=== PATIENT | female | born 1945 | race Caucasian/White ===

== ENCOUNTER 2016-10-29 00:17 | Inpatient (IN) | payer MEDICAID ==
[~2016-10-29] VITALS: Ht 152.4 cm; Wt 78.0 kg
[~2016-10-29 00:17] MED LIST: ATA10 PO; BG MC; CLINDAMYCIN HC300 MG PO; COLACE100 MG PO; DULERA1 AR2; GLU500 PO; LAC PO; LEVAQUIN750 MG PO; MUCINEX600 MG PO; NORCO1 TA2 PO; PROVENTIL0.09 MG/A1; QVAR0.04 MG/Ac; ZES10 PO
[2016-10-29 00:53] LABS: BASOPHIL % 0.7 % (0-2); PLATELET COUNT 136 x10^3mcL (130-400)
[2016-10-29 00:56] LABS: RED CELL DISTRIBUTION WIDTH 16.2 % (11.5-14.5)
--- NOTE | 2016-10-29 01:00 | NUR ---
PT ARRIVED TO ED TODAY C/O COUGH AND FEVER X 4 DAYS. PT HAS PRODUCTIVE COUGH WITH GREEN PHLEGM NOTEED. VITAL SIGNS STABLE AT THIS TIME. NO S/SX OF DISTRESS NOTED.
[2016-10-29 01:05] LABS: CALCIUM 8.1 mg/dL (8.5-10.1); CARBON DIOXIDE 23.3 mmol/L (21-32); CHLORIDE SERUM 105 mmol/L (98-107); GLUCOSE SERUM 258 mg/dL (74-106); POTASSIUM SERUM 4.4 mmol/L (3.5-5.1); SODIUM SERUM 136 mmol/L (136-145)
[2016-10-29 01:10] LABS: ALBUMIN 2.9 g/dL (3.4-5.0); ALKALINE PHOSPHATASE 166 U/L (46-116); ALT/SGPT 30 U/L (14-59); AST/SGOT 41 U/L (15-37); BILIRUBIN TOTAL 1.07 mg/dL (0.20-1.00); TOTAL PROTEIN, SERUM 7.4 g/dL (6.4-8.2)
--- NOTE | 2016-10-29 01:15 | NUR ---
PT HR INCREASED TO [address] DR[address] GOMEZ MADE AWARE. NEW ORDERS PROVIDED AT THIS TIME.
--- NOTE | 2016-10-29 03:39 | NUR ---
PT TRANSPORTED TO [facility] VIA [facility] BY STANISLAV GIORDANO. PT IN NAD
--- NOTE | 2016-10-29 03:40 | NUR ---
REC'D PT FROM ED VIA [facility] ACCOMPANIED BY NURSE AND DAUGHTER IN LAW. PT AAOX4, SPEECH CLEAR. ON TELE # 13 READING SR/ST WITH PACS. REPORTS SHARP CP 6/10 AND LOWER BACK PAIN EXACERBATED BY COUGHING. ALSO C/O PAIN BLE 10/10 FROM SCIATICA. NO SIGNS OF DISTRESS NOTED. DENIES SOB OR DYSPNEA. SPO2 98% ON RA. DENIES N/V, DIZZINESS, OR GREY. UA COLLECTED, RT IN TO COLLECT ABGS. AMBULATORY. USES CANE SOMETIMES AT HOME. NOTED PSORIASIS TO BACK AND LOWER ABD. NO OPEN LESIONS. ORIENTED TO DEVICES AND SURROUNDINGS. CALL LIGHT WITHIN REACH, BED AT LOWEST POSITION. WILL CONTINUE TO MONITOR.
[2016-10-29 03:43] VITALS: BP 138/53
[2016-10-29 03:46] VITALS: BP 138/53
[2016-10-29] MEDS ORDERED: LANTI SC (03:51)
[2016-10-29 04:16] LABS: FREE T4 0.96 ng/dL (0.76-1.46); FREE THYROXINE INDEX 2.2 ug/dL (1.4-4.5); T4(THYROXINE) 6.5 ug/dL (4.7-13.3)
[2016-10-29 04:17] LABS: T3 TOTAL 0.79 ng/mL
[2016-10-29] MEDS ORDERED: HUMALOG100 U/ML SC (04:19)
[2016-10-29 04:28] LABS: CHOLESTEROL/HDL RATIO 2.1
--- NOTE | 2016-10-29 04:48 | NUR ---
Z GUARD APPLIED TO PSORIASIS ON BACK/LOWER ABD PER ORDER
--- NOTE | 2016-10-29 04:50 | NUR ---
PT C/O CP 6/10, LOWER BACK PAIN, AND BLE PAIN 10/10. MORPHINE GIVEN PER ORDER. WILL MONITOR FOR RELIEF.
[2016-10-29 04:51] LABS: UA SPECIFIC GRAVITY 1.015 (1.005-1.035); microscopic required? YES; urine erythrocyte TRACE (NEGATIVE)
[2016-10-29 04:58] LABS: AMPHETAMINE QUAL UR NONE DETECTED (NEG <=1000)
--- NOTE | 2016-10-29 06:33 | NUR ---
DUE MEDS GIVEN. BS 311, 12 UNITS INSULIN GIVEN. DENIES PAIN AT THIS TIME. NO RESP DISTRESS OR SOB. BREATHING EVEN/UNLABORED. CALL LIGHT WITHIN REACH, BED AT LOWEST POSITION. WILL ENDORSE TO DAY SHIFT NURSE.
--- NOTE | 2016-10-29 07:30 | NUR ---
RECEIVED PT FROM NOC SHIFT. AAOX4 SITTING UP IN BED EATING BREAKFAST WITH NO C/O PAIN AT THIS TIME. IVF TO RFA CDI. BREATH SOUNDS NOTED WITH WHEEZING BULMARO. ABDOMEN SOFT WITH ACTIVE BOWEL SOUNDS. PULSES MODERATE WITH TRACE EDEMA NOTED TO BLE. CALL LIGHT WITHIN REACH.
[2016-10-29 10:03] VITALS: BP 126/63
--- NOTE | 2016-10-29 10:05 | NUR ---
PT SITTING UP ON EDGE OF BED. NO SIGNS OF PAIN OR DISCOMFORT. CALL LIGHT WITHIN REACH.
--- NOTE | 2016-10-29 12:55 | NUR ---
PT RESTING IN BED WITH NO C/O PAIN AT THIS TIME. CALL LIGHT WITHIN REACH.
[2016-10-29 14:40] VITALS: BP 138/70
--- NOTE | 2016-10-29 15:30 | NUR ---
PT SITTING UP IN BED WATCHING TV WITH NO C/O PAIN AT THIS TIME. CALL LIGHT WITHIN REACH.
[2016-10-29 17:30] VITALS: BP 104/62
--- NOTE | 2016-10-29 18:05 | NUR ---
PT SITTING ON EDGE OF BED EATING DINNER. AAOX4 WITH NO C/O PAIN AT THIS TIME. CALL LIGHT WITHIN REACH. WILL ENDORSE TO NOC SHIFT.
--- NOTE | 2016-10-29 18:55 | NUR ---
DR MURCIA MADE AWARE OF BLOOD SUGAR OF 524/236 WITH A RECHECK OF 216 AFTER A HOUR AFTER INSULINS WERE GIVEN.
--- NOTE | 2016-10-29 19:35 | NUR ---
RECEIVED PATIENT SLEEPING BUT EASILY AROUSABLE WITH NO SIGN OF ACUTE DISTRESS NOTED. TELE#13, SR WITH PAC ON MONITOR. SCD TO BLE IN PLACE. WHEEZING NOTED SATTING AT 98% RA, SOB ON EXERTION NOTED. KPAD TO BACK IN PLACE. IV TO RFA INTACT AND INFUSING WELL. WILL CONTINUE TO MONITOR.
[2016-10-29 22:02] VITALS: BP 123/53
--- NOTE | 2016-10-30 00:25 | NUR ---
SLEEPING THIS TIME BREATHING EASY AND NONLABOR. WILL CONTINUE TO MONITOR.
--- NOTE | 2016-10-30 05:10 | NUR ---
SLEPT FAIRLY DENIES PAINA ND DISOCMFORT THE ENTIRE SHIFT. ALL NEEDS ATTENDED.
[2016-10-30 05:55] VITALS: BP 114/61
[2016-10-30 07:05] LABS: BASOPHIL % 0.1 % (0-2)
[2016-10-30 07:14] LABS: PLATELET COUNT 128 x10^3mcL (130-400); RED CELL DISTRIBUTION WIDTH 16.7 % (11.5-14.5)
--- NOTE | 2016-10-30 07:42 | NUR ---
ALERT AND ORIENTED. BREATHING FREELY ON RA. DENIES ANY PAIN AT THIS TIME. NO RESP DISTRESS. NS INFUSING 150 CC HOUR. TELE # 31 NSR. INDEPENDENT W ADL'S. GIBRALTARIAN SPEAKING. UNDERSTANDS SOME SYRIAC. CALL LIGHT WITHIN REACH.
[2016-10-30 07:44] LABS: ALKALINE PHOSPHATASE 139 U/L (46-116); ALT/SGPT 29 U/L (14-59); AST/SGOT 28 U/L (15-37); BILIRUBIN TOTAL 0.7 mg/dL (0.20-1.00); CALCIUM 8.3 mg/dL (8.5-10.1); CARBON DIOXIDE 19.5 mmol/L (21-32); CHLORIDE SERUM 109 mmol/L (98-107); CREATININE SERUM 1.2 mg/dL (0.6-1.0); GLUCOSE SERUM 169 mg/dL (74-106); POTASSIUM SERUM 4.6 mmol/L (3.5-5.1); SODIUM SERUM 141 mmol/L (136-145); TOTAL PROTEIN, SERUM 6.9 g/dL (6.4-8.2)
[2016-10-30 07:48] LABS: ALBUMIN 2.6 g/dL (3.4-5.0)
[2016-10-30 10:10] VITALS: BP 121/56
[2016-10-30 13:13] VITALS: BP 107/53
--- NOTE | 2016-10-30 15:56 | NUR ---
Initial Nutrition Assessment Dx: Possible Acute Respiratory Failure 2/2 Acute Asthma Exacerbation PMHx: Asthma, DM, HTN, Liver Cirrhosis, Psoriasis, Vertigo, Medical Non-compliance PSHx: Appendectomy, Hernia Repair (left inguinal), right cataract laser eye surgery Labs: BG 169H, BUN 39H, Cr 1.2H, Alb 2.6L, ALP 139H, AC 7.9H, WBC 11.9H, H/H 9.2/29L Meds: humulin R, NS, theragran, colace, humalog, miralax, D50 Current Diet Order: CCHO 60gm (10/30) PO Intakes: none recorded (10/30) Ht: 152.4cm,60". Wt: 172lbs, 78kg. BMI: 33.6 kg/m2 (Obese Class I) IBW:100 lb, 45.4 kg. %IBW: 172%. UBW: 170lbs x 5 months Age: 71 Y/O F Food Allergies: NKFA Skin:intact . Juan:20 Edema: noted to BLE GI: abd soft and round, bowel sounds active. 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 The RD spoke to RN, reports the pt is able to tolerate 8 pills w/ water today, did not see any active S/S of chewing/swallowing issues. Problem with: N: None. V: None. D: none. C: Yes. Problem with: Chewing: None. Swallowing: Yes as per pt, is unable to chew and swallow meats or hard textures x 1 yr. Current Appetite: poor w/ lack of appetite Recent Weight Change: 2lbs . % Weight Change: 1.1 Vitamin/Supplement Use: none Diet at Home: pt is very picky, needs encouragment to eat meals, tries to consume 2 small meals per day, pt cooks at home Physical Activity: none Education: none Estimated Nutritional Needs Based on CBW 172 lb, 78kg Energy: 4989-5195 kcal/day (20-25 kcal/kg for Acute Respiratory Failure) Protein: 78-94g/day (1-1.2 g/kg for Acute Respiratory Failure) Fluid: 5758-5058 ml/day (20-25 ml/kg for Acute Respiratory Failure) or per MD Nutrition Diagnosis 1. Inadequate protein/energy intake related to decreased appetite + poss difficulty swallowing as evidenced by pt's self report and poos PO intake RV REPAIRER Intervention 1. Mechanical Soft Chopped CCHO 60gm w/ Boost Glucose Control (250kcals, 14g protein) daily. Max encouragment and make food preferences known. 2. Consider COMPLIANCE LEAD eval if the pt is showing S/S of aspiration or problem chewing / swallowing 3. Adjust BM regimen PRN 4. B-Complex and Folic Acid daily Monitor/Evaluate Goal: PO intakes to meet at least 50% of estimated needs Monitor: PO intakes/tolerance, labs, skin integrity, GI function, wt F/U in 2-3 days as HIGH risk (11/01-11/02)
--- NOTE | 2016-10-30 16:10 | NUR ---
1. Mechanical Soft Chopped CCHO 60gm w/ Boost Glucose Control (250kcals, 14g protein) daily. Max encouragment and make food preferences known. 2. Consider DRILLING FIELD SPECIALIST eval if the pt is showing S/S of aspiration or problem chewing / swallowing 3. Adjust BM regimen PRN 4. B-Complex and Folic Acid daily
[2016-10-30 17:26] VITALS: BP 117/53
--- NOTE | 2016-10-30 17:53 | NUR ---
ALERT AND ORIENTED. NO C/O PAIN THIS SHIFT. BREATHING FREELY ON RA. CONT. WITH CONGESTED COUGH. AMBULATED IN HALLWAY WITH FAMILY. BRP. NS INFUSING 10 CC HOUR. VSS. ALL LIGHT WITHIN REACH.
--- NOTE | 2016-10-30 19:15 | NUR ---
PATIENT RECEIVED AWAKE, ALERT, AND ORIENTED X 4. NO DISTRESS NOTED. PATIENT DENIES SOB. IV SITE TO RIGHT FOREARM, PATENT AND INTACT. IV FLUID INFUSING PER DOCTOR'S ORDER. BED IN LOWEST POSITION. CALL LIGHT WITHIN REACH. WILL CONTINUE TO MONITOR.
[2016-10-30 22:26] VITALS: BP 120/57
--- NOTE | 2016-10-31 05:27 | NUR ---
PATIENT RESTED THROUGHOUT THE NIGHT. NO DISTRESS NOTED. NO C/O PAIN/DISCOMFORT. ALL NEEDS MET. SAFETY AND COMFORT MEASURES MAINTAINED. BED IN LOWEST POSITION. CALL LIGHT WITHIN REACH. WILL CONTINUE TO MONITOR AND ENDORSE TO NEXT SHIFT NURSE.
--- NOTE | 2016-10-31 06:25 | NUR ---
PATIENT BLOOD SUGAR=60. JUICE AND CRACKERS GIVEN. PATIENT ASYMPTOMATIC SITTING UP IN BED.
[2016-10-31 06:30] VITALS: BP 114/61
[2016-10-31 06:34] LABS: BASOPHIL % 0.2 % (0-2); PLATELET COUNT 159 x10^3mcL (130-400)
[2016-10-31 06:48] LABS: CALCIUM 8.2 mg/dL (8.5-10.1); CARBON DIOXIDE 22.5 mmol/L (21-32); CHLORIDE SERUM 111 mmol/L (98-107); CREATININE SERUM 1.1 mg/dL (0.6-1.0); MAGNESIUM 1.9 mg/dL (1.8-2.4); POTASSIUM SERUM 4.8 mmol/L (3.5-5.1); SODIUM SERUM 143 mmol/L (136-145)
[2016-10-31 06:56] LABS: GLUCOSE SERUM 59 mg/dL (74-106)
--- NOTE | 2016-10-31 07:45 | NUR ---
PATIENT AOX4, DENIES GREY/DIZZINESS AT THIS TIME. TELE 13, DENIES CP. LUNGS WITH EXP WHEEZING NOTED, SOB UPON EXERTION, NO RESP DISTRESS NOTED AT REST AT THIS TIME. O2 SAT 95% ON RA. PERIPHERAL PULSES PALPABLE, TRACE EDEMA TO BLE'S. BOWEL SOUNDS ACTIVE, LAST BM YESTERDAY. KPAD TO BACK FOR SCIATICA. 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 DENIES PAIN AT THIS TIME. IV ACCESS TO RFA RUNNING NS INFUSING WELL SITE WNL. CALL LIGHT WITHIN REACH.
[2016-10-31 08:30] VITALS: BP 107/52
[2016-10-31 10:21] VITALS: BP 132/73
--- NOTE | 2016-10-31 11:18 | NUR ---
REHAB NOTES SWALLOW EVAL CANCELLED AT [facility]; SOCK IRONER, RN, RD AWARE.
--- NOTE | 2016-10-31 17:06 | NUR ---
DIESEL PILE HAMMER OPERATOR REPORTS TEMP 100.0 - COOLING MEASURES INITIATED. WILL CONT TO MONITOR.
[2016-10-31 17:55] VITALS: BP 117/65
--- NOTE | 2016-10-31 18:06 | NUR ---
PATIENT REFUSING COOLING MEASURES. TEMP RECHECK 100.1 TYLENOL GIVEN. WILL CONT TO MONITOR.
[2016-10-31 19:40] VITALS: BP 125/63
--- NOTE | 2016-10-31 19:40 | NUR ---
RECEIVED PT AWAKE ALERT AND VERBALLY RESPONSIVE IN SYRIAC.DENIES SOB/DIFFICULTY BREATHING.NO COUGHING/CONGESTION NOTED.TOLERATING ROOMAIR AT THIS TIME.O2 SAT @ 93%.LATEST TEMP CHECKED @ 100.2F.COOLING MEASURES IN PLACED.WILL CONTINUE TO MONITOR.
--- NOTE | 2016-10-31 21:04 | NUR ---
LATEST TEMP CHECKED @ 98.7F.WILL CONTINUE TO MONITOR.
--- NOTE | 2016-11-01 04:58 | NUR ---
PT SLEPT WELL.AFEBRILE.DENIES ANY PAIN AT THIS TIME.ALL NEEDS ATTENDED.WILL CONTINUE TO MONITOR.
--- NOTE | 2016-11-01 05:07 | NUR ---
BS CHECKED @ 68 MG/DL.REPEATED @ 64 MG/DL.PT VERBALLY RESPONSIVE.ASYMPTOMATIC.ORANGE JUICE GIVEN.SNACKS ALSO GIVEN AT THIS TIME.WILL CONTINUE TO MONITOR.
[2016-11-01 05:48] VITALS: BP 124/67
--- NOTE | 2016-11-01 06:16 | NUR ---
LATEST TEMP @ 98.8f.BS RECHECKED @ 135 MG/DL.WILL ENDORSE TO AM NURSE.
[2016-11-01 06:18] LABS: BASOPHIL % 0.4 % (0-2); PLATELET COUNT 147 x10^3mcL (130-400)
[2016-11-01 06:25] LABS: CALCIUM 8.2 mg/dL (8.5-10.1); CARBON DIOXIDE 25.9 mmol/L (21-32); CHLORIDE SERUM 108 mmol/L (98-107); CREATININE SERUM 0.9 mg/dL (0.6-1.0); GLUCOSE SERUM 63 mg/dL (74-106); MAGNESIUM 1.8 mg/dL (1.8-2.4); PHOSPHOROUS 3.5 mg/dL (2.5-4.9); POTASSIUM SERUM 4.2 mmol/L (3.5-5.1); SODIUM SERUM 140 mmol/L (136-145)
[2016-11-01 06:30] LABS: RED CELL DISTRIBUTION WIDTH 16.7 % (11.5-14.5)
--- NOTE | 2016-11-01 07:50 | NUR ---
RECEIVED THE PATIENT AWAKE AND ORIENTED TO PERSON, PLACE AND TIME. DENIED SHORTNESS OF BREATH, NAUSEA/VOMITING OR PAIN AT THIS TIME. IV H/L TO RFA PATENT. CALL LIGHT WITHIN REACH. SIDE RAILS UP X3. BED WAS AT LOWEST POSITION.
--- NOTE | 2016-11-01 08:10 | NUR ---
DR. FORD AND THE TEAM WERE MAKING ROUND TO SEE THE PATIENT. THE CARE PLAN WAS EXPLAINED TO THE PATIENT VIA OLDER WORKER SPECIALIST, ONE OF RN. THE PATIENT VERBALIZED AGREEMENT WITH THE PLAN.
[2016-11-01 10:33] VITALS: BP 121/55
[2016-11-01] MEDS ORDERED: ALBUTEROL1.25 MG/3 NEB (13:46)
[2016-11-01] MEDS ORDERED: LEVAQUIN750 MG PO (14:06)
[2016-11-01] MEDS ORDERED: LAC PO (14:07)
[2016-11-01 15:19] VITALS: BP 121/55
--- NOTE | 2016-11-01 15:40 | NUR ---
DISCHARGE TEACHING PROVIDED AT THIS TIME. RT AT BEDSIDE PROVIDING BREATHING TREATMENT (SEE EMAR). PATIENT AWAKE, ALERT, SITTING UP AT BEDSIDE, NO SIGNS OF DISTRESS NOTED. DIABETIC EDUCATION PROVIDED AT THIS TIME. VERBALIZED UNDERSTANDING, STATES SHE HAS A GLUCOMETER WITH SUPPLIES AT HOME. PATIENT TO FOLLOW UP AT CLINIC TOMORROW, ALL SAFETY MEASURES IN PLACE, GIULIANA PEREZ MADE AWARE.
--- NOTE | 2016-11-01 16:09 | NUR ---
H/L WAS REMOVED WITH CATH INTACT. ID BANDS WERE REMOVED. PHOTOGRAPHS OF PSORIASIS AT BLE, ABD AND BACK WERE TAKEN EARLIER. THE PATIENT IS WAITING FOR A RIDE.
--- NOTE | 2016-11-01 17:05 | NUR ---
WITNESSING DR. CONNELL-RESIDENT CALLING THE SON, ABRAN STANLEY TELLING HIM THAT THE PATIENT NEEDS NEBULIZER FOR BREATHING TREATMENT BUT THE PATIENT'S INSURANCE DOES NOT COVER THE DEVICE. THE PATIENT WILL FOLLOW UP WITH [facility] TOMORROW AND PURCHASE ONE AFTER THAT FOR HER BREATHING TREATMENT. ABRAN AGREED WITH THE PLAN.
--- NOTE | 2016-11-01 17:57 | NUR ---
THE PATIENT WAS TAKEN TO THE LOBBY VIA WHEELCHAIR IN STABLE CONDITION. REMINDED THE PATIENT'S SON TO ASK FOR NEBULIZER AT [facility] TOMORROW AT THE APPOINTMENT SO THAT THE PATIENT WILL HAVE THE BREATHING TREATMENT. HE PROMISED TO DO THAT. ALL BELONGINGS WERE SENT HOME WITH THE PATIENT UPON DISCHARGE.
== END 2016-11-01 18:07 | disposition home or self-care (01) | DRG 140 ==
LOC: ED 00:17 → MU 02:17 → DU 02:17 → MU 02:17 → DU 03:40 → MU 10-31 10:22
PROVIDERS: Emergency Medicine; Family Medicine; ADMIT Family Medicine
DX: J44.1 Chronic obstructive pulmonary disease with (acute) exacerbation (principal); J96.00 Acute respiratory failure, unspecified whether with hypoxia or hypercapnia; E11.00 Type 2 diabetes mellitus with hyperosmolarity without nonketotic hyperglycemic-hyperosmolar coma (NKHHC); E43 Unspecified severe protein-calorie malnutrition; I50.43 Acute on chronic combined systolic (congestive) and diastolic (congestive) heart failure; D69.59 Other secondary thrombocytopenia; I27.2 Other secondary pulmonary hypertension; K74.60 Unspecified cirrhosis of liver; E11.65 Type 2 diabetes mellitus with hyperglycemia; J45.901 Unspecified asthma with (acute) exacerbation; I11.0 Hypertensive heart disease with heart failure; L40.9 Psoriasis, unspecified; K21.9 Gastro-esophageal reflux disease without esophagitis; M54.5 Low back pain; G89.29 Other chronic pain; D64.9 Anemia, unspecified; E66.9 Obesity, unspecified; Z68.33 Body mass index [BMI] 33.0-33.9, adult; Z79.84 Long term (current) use of oral hypoglycemic drugs
CPT/HCPCS: 36600; 80307; 82962; 83880; 84439; J1815; J2270; J2920; J2930; J7030; J7613; J7633; J7644; Q0092